=== PATIENT | female | born 1975 | race Caucasian/White ===

== ENCOUNTER → 2018-04-17 | Outpatient (CLI) | payer OTHER | LOC: FIMAGING 11:34 | PROVIDERS: ATTEND Hospitalist | DX: O09.521 Supervision of elderly multigravida, first trimester (principal); Z3A.12 12 weeks gestation of pregnancy ==

== ENCOUNTER → 2018-05-16 | Outpatient (CLI) | payer OTHER | LOC: FIMAGING 08:54 | PROVIDERS: ATTEND Hospitalist | DX: O92.29 Other disorders of breast associated with pregnancy and the puerperium (principal) ==

== ENCOUNTER → 2018-06-08 | Outpatient (CLI) | payer OTHER | LOC: FIMAGING 12:50 | PROVIDERS: ATTEND Hospitalist | DX: O09.522 Supervision of elderly multigravida, second trimester (principal); Z3A.19 19 weeks gestation of pregnancy ==

== ENCOUNTER → 2018-08-28 | Outpatient (CLI) | payer OTHER | LOC: FIMAGING 12:10 | PROVIDERS: ATTEND Obstetrics & Gynecology | DX: O09.523 Supervision of elderly multigravida, third trimester (principal); R11.0 Nausea; Z3A.31 31 weeks gestation of pregnancy ==

== ENCOUNTER 2018-10-27 06:00 | Inpatient (IN) | payer OTHER ==
[2018-10-27] MEDS ORDERED: AMMONIA AROMATIC 1 EACH AMP IH PRN (07:52)
[2018-10-27] MEDS ORDERED: OXYTOCIN/RINGERS LACTATE 1,000 ML IV PRN (07:52)
[2018-10-27] MEDS ORDERED: OLIVE OIL 118 ML BTL MISC PRN (07:52)
[2018-10-27] MEDS ORDERED: LR 1,000 ML IV PRN (07:52)
[2018-10-27] MEDS ORDERED: MISOPROSTOL 200 MCG TAB PO PRN (07:52)
[2018-10-27] MEDS ORDERED: LIDOCAINE 1% 300 MG/30 ML SDV SC PRN (07:52)
[2018-10-27] MEDS ORDERED: IBUPROFEN 600 MG TAB PO PRN (07:52)
[2018-10-27] MEDS ORDERED: TERBUTALINE SULFATE 1 MG/ML VIAL IV PRN (07:52)
[2018-10-27] MEDS ORDERED: EPSOM SALT 454 GM TP PRN (07:52)
[2018-10-27 08:18] LABS: PLATELET COUNT 178 10^3/uL (150-400)
[2018-10-27] MEDS ORDERED: LR 500 ML IV PRN ×2 (08:45→09:06)
[2018-10-27] MEDS ORDERED: OXYTOCIN/RINGERS LACTATE 500 ML IV SCH ×2 (09:00→09:30)
[2018-10-27] MEDS ORDERED: OXYTOCIN/LR *STANDARD DOSE PROTOCOL IV SCH (09:30)
[2018-10-27] MEDS ORDERED: TERBUTALINE SULFATE 1 MG/ML VIAL ONE (09:41)
[2018-10-27] MEDS ORDERED: OLIVE OIL 118 ML BTL MISC ONE (09:41)
[2018-10-27] MEDS ORDERED: LIDOCAINE 1% 300 MG/30 ML SDV ONE (09:41)
[2018-10-27] MEDS ORDERED: AMMONIA AROMATIC 1 EACH AMP IH ONE (09:41)
[2018-10-27] MEDS ORDERED: MISOPROSTOL 200 MCG TAB ONE (09:42)
[2018-10-27] MEDS ORDERED: OXYTOCIN 10 UNIT/ML VIAL ONE (09:42)
--- NOTE | 2018-10-27 12:18 | PDGENHP ---
History and Physical - Chief Complaint Elective IOL - History of Present Illness Chloe is a 43 yo today at 40w0d by SAMI of 10/27/18 - here for IOL due to AMA. H/o 3 SVDs in the past as below. This complicated by AMA (43), APA (>50). Rh neg. OB History: 2006 - SAB, D&C 2007 - , Loraine, 1hdi2kg, 40wks, 24hrs labor, epidural 2011 - , Christa, [id number], 41wks, 13hrs labor, epidural 2013 - SAB, D&C 2015 - , Silvino, [id number], 40w2d, 5hrs labor, IOL post-dates Labs: A NEGATIVE Antibody negative RPR NR Hep B Neg HIV neg Trio neg 2014 Standard panel neg PIH labs baseline WNL Apr 2018 GCC neg AFP normal Innatal normal Glucola 121 GBS NEGATIVE VZV IMMUNE Parvo NONimmune History Information - Allergies/Home Medication List Allergies/Adverse Reactions: No Known Allergies Allergy (Verified 05/06/14 11:19) Home Medications: Vit27&Calcium/Iron/FA [] 1 each PO DAILY 05/06/14 [Last Taken Unknown] I have personally reviewed and updated: family history, medical history, social history, surgical history Past Medical History: AMA, Rh negative - Surgical History Reports: no pertinent surgical hx - Family History Positive for: non-pertinent - Social History Smoking Status: Never smoked Review of Systems Review of Systems: ROS: 10pt was reviewed & negative except for what was stated in HPI & below Physical Exam Physical Exam: Constitutional: no apparent distress, appears nourished, not in pain Eyes: PERRL, anicteric sclera Ears, Nose, Mouth, Throat: moist mucous membranes Respiratory: no respiratory distress Gastrointestinal: soft, non-tender abdomen, other (gravid, longitudinal lie) Skin: warm, normal color, no rashes or abrasions Lab Data & Imaging Review 10/27/18 07:30 WBC 9.42 10^3/uL (3.80-9.50) 10/27/18 07:30 RBC 4.19 10^6/uL (4.18-5.33) 10/27/18 07:30 Hgb 12.8 g/dL (12.6-16.3) 10/27/18 07:30 Hct 37.8 % (38.0-47.0) L 10/27/18 07:30 MCV 90.2 fL (81.5-99.8) 10/27/18 07:30 MCH 30.5 pg (27.9-34.1) 10/27/18 07:30 MCHC 33.9 g/dL (32.4-36.7) 10/27/18 07:30 RDW 13.7 % (11.5-15.2) 10/27/18 07:30 Plt Count 178 10^3/uL (150-400) 10/27/18 07:30 MPV 10.0 fL (8.7-11.7) 10/27/18 07:30 Neut % (Auto) 77.3 % (39.3-74.2) H 10/27/18 07:30 Lymph % (Auto) 11.3 % (15.0-45.0) L 10/27/18 07:30 Sierra % (Auto) 7.7 % (4.5-13.0) 10/27/18 07:30 Eos % (Auto) 2.5 % (0.6-7.6) 10/27/18 07:30 Baso % (Auto) 0.4 % (0.3-1.7) 10/27/18 07:30 Nucleat RBC Rel Count 0.0 % (0.0-0.2) 10/27/18 07:30 Absolute Neuts (auto) 7.27 10^3/uL (1.70-6.50) H 10/27/18 07:30 Absolute Lymphs (auto) 1.06 10^3/uL (1.00-3.00) 10/27/18 07:30 Absolute Monos (auto) 0.73 10^3/uL (0.30-0.80) 10/27/18 07:30 Absolute Eos (auto) 0.24 10^3/uL (0.03-0.40) 10/27/18 07:30 Absolute Basos (auto) 0.04 10^3/uL (0.02-0.10) 10/27/18 07:30 Absolute Nucleated RBC 0.00 10^3/uL (0-0.01) 10/27/18 07:30 Immature Gran % 0.8 % (0.0-1.1) 10/27/18 07:30 Immature Gran # 0.08 10^3/uL (0.00-0.10) 10/27/18 07:30 Patient ABO/Rh A NEGATIVE 10/27/18 07:30 Antibody Screen NEGATIVE 10/27/18 07:30 Assessment & Plan Assessment: 43 yo at 40w0d today - here for IOL for AMA. Pitocin started this AM, will AROM once into regular ctx pattern. Will want epidural. No h/o dystocia or PPH - pelvic proven to 1ocy8rm. Rh neg, will need screen and RhoGam PRN. GBS NEGATIVE. Rubella and VZV immune. ONEYDA
[2018-10-27] MEDS ORDERED: fentaNYL 2MCG/ML/BUP 0.1% RTU 100 ML BAG EP ONE (16:58)
[2018-10-27] MEDS ORDERED: PHENYLEPHRINE HCL 100 MCG/ML SYR ONE (16:59)
[2018-10-27] MEDS ORDERED: BUPIVACAINE 0.25% 10 ML SDV ONE (16:59)
[2018-10-27] MEDS ORDERED: ONDANSETRON 4 MG/2 ML VIAL IVP PRN (17:31)
[2018-10-27] MEDS ORDERED: PHENYLEPHRINE HCL 100 MCG/ML SYR IVP PRN (17:31)
[2018-10-27] MEDS ORDERED: NALOXONE HCL 0.4 MG/ML INJ IVP PRN (17:31)
--- NOTE | 2018-10-27 17:33 | PREANESOB ---
Obstetric Pre-Anesthesia Info - General Info Proposed Procedure: ROSITA : 6 Para: 3 SAMI: 10/27/18 Gestational Age: 40 week(s) and 0 day(s) - Info Status: Full Term FHR Pattern: Reassuring - Labor Status Indications for Labor Analgesia: Pain Control Labor Epidural: Yes Anesthesia Allergies/Adverse Reactions: Allergy/AdvReac Type Severity Reaction Status Date / Time No Known Allergies Allergy Verified 05/06/14 11:19 Home Medications: Medication Instructions Recorded Vit27&Calcium/Iron/FA 1 each PO DAILY 05/06/14 [] Hydrocodone/APAP 5/325 [Greig 1 - 2 tab PO Q4 PRN #7 tab 12/19/15 5/325 (*)] Ibuprofen [Motrin (*)] 600 mg PO Q6 PRN #0 tab 12/19/15 Iron Polysacch/Iron Heme Polyp 28 mg PO BID #0 tab 12/19/15 [Bifera] Visit Medications: Generic Name Dose Route Start Last Admin Trade Name Freq PRN Reason Stop Dose Admin Ammonia (Aromatic Spirit) 1 each 10/27/18 07:52 Ammonia Aromatic IH 11/06/18 07:51 ONCE PRN Fainting Lactated Ringer's 1,000 mls @ 0 mls/hr 10/27/18 07:52 10/27/18 09:29 Lr IV 10/28/18 07:51 1,000 mls PRN PRN Administration SEE PROTOCOL CONDITIONS Protocol Per Protocol Oxytocin/Lactated Ringer's 1,000 mls @ 0 mls/hr 10/27/18 07:52 Pitocin 20 Units/Lr (Premix) IV PRN PRN Post bleeding As Directed Lactated Ringer's 500 mls @ 500 mls/hr 10/27/18 09:06 Lr IV 10/28/18 09:06 PRN PRN Maternal Hypotension Oxytocin/Lactated Ringer's 500 mls @ 0 mls/hr 10/27/18 09:30 10/27/18 09:28 Pitocin 30 Units/Lr (Premix) IV 04/25/19 09:29 500 mls CONT STERLING Administration Protocol Per Protocol Ibuprofen 600 mg 10/27/18 07:52 Motrin PO ONCE PRN post , pain Lidocaine HCl 300 mg 10/27/18 07:52 Lidocaine Hcl 1% SC 04/25/19 07:51 ONCE PRN episiotomy Magnesium Sulfate 454 gm 10/27/18 07:52 Epsom Salt TP 04/25/19 07:51 Q1H PRN perineal discomfort Misoprostol 800 - 1,000 mcg 10/27/18 07:52 Cytotec PO 04/25/19 07:51 ONCE PRN Vaginal Atony/Bleeding [place] Oil 118 ml 10/27/18 07:52 Sweet Oil MISC 04/25/19 07:51 ONCE PRN perineal massage Terbutaline Sulfate 0.25 mg 10/27/18 07:52 Brethine IV 04/25/19 07:51 ONCE PRN Tachysystole Discontinued Medications Generic Name Dose Route Start Last Admin Trade Name Freq PRN Reason Stop Dose Admin Ammonia (Aromatic Spirit) Confirm 10/27/18 09:41 Ammonia Aromatic Administered 10/27/18 09:42 Dose 1 each IH .STK-MED ONE Bupivacaine HCl Confirm 10/27/18 16:59 Sensorcaine 0.25% Sdv Administered 10/27/18 17:00 Dose 10 ml .ROUTE .STK-MED ONE Fentanyl/Bupivacaine HCl Confirm 10/27/18 16:58 Fentanyl/Bupivacaine/Ns 2 Mcg/Ml 0.1% (Premix Administered 10/27/18 16:59 Dose 100 ml EP .STK-MED ONE Oxytocin/Lactated Ringer's 500 mls @ 0 mls/hr 10/27/18 09:30 Pitocin 30 Units/Lr (Premix) IV 04/25/19 09:29 CONT STERLING Protocol Per Protocol Lidocaine HCl Confirm 10/27/18 09:41 Lidocaine Hcl 1% Administered 10/27/18 09:42 Dose 300 mg .ROUTE .STK-MED ONE Misoprostol Confirm 10/27/18 09:42 Cytotec Administered 10/27/18 09:43 Dose 1,000 mcg .ROUTE .STK-MED ONE [place] Oil Confirm 10/27/18 09:41 Sweet Oil Administered 10/27/18 09:42 Dose 118 ml MISC .STK-MED ONE Oxytocin Confirm 10/27/18 09:42 Pitocin Administered 10/27/18 09:43 Dose 10 unit .ROUTE .STK-MED ONE Phenylephrine HCl Confirm 10/27/18 16:59 Neosynephrine Administered 10/27/18 17:00 Dose 1,000 mcg .ROUTE .STK-MED ONE Terbutaline Sulfate Confirm 10/27/18 09:41 Brethine Administered 10/27/18 09:42 Dose 1 mg .ROUTE .STK-MED ONE - Anesthesia History Response to Local Anesthetics: Normal Anesthesia & Operative History: Prob w/Prior Anesthesia Family Anesthesia History: Negative - Social History Substance Use/Abuse: Denies - Vital Signs Height/Weight (Nursing): Height 175.26 cm Weight 87.543 kg - Focused Exam Neck exam: FROM Mallampati Score: Class 2 Mouth exam: normal dental/mouth exam Pulmonary: no respiratory distress Cardiovascular: regular rate and rhythym Labs: 10/27/18 07:30 Patient ABO/Rh A NEGATIVE 10/27/18 07:30 - Plan Anesthetic Plan: ROSITA Consent Signed and on Chart: Yes
[2018-10-27] MEDS ORDERED: fentaNYL 2MCG/ML/BUP 0.1% RTU 100 ML EP SCH (18:00)
[2018-10-27] MEDS ORDERED: LR 500 ML IV SCH (18:00)
[2018-10-27] MEDS ORDERED: HYDROCORTISONE 0.5% CREAM TP PRN (18:20)
[2018-10-27] MEDS ORDERED: SIMETHICONE 80 MG TAB CHEW PO PRN (18:20)
--- NOTE | 2018-10-27 18:20 | OBDEL ---
Info Type: Vaginal Presentation at Delivery: Vertex L&D Analgesia/Anesthesia Type: Epidural GBS+: No Intrapartum Medications: Generic Name Dose Route Start Last Admin Trade Name Freq PRN Reason Stop Dose Admin Lactated Ringer's 1,000 mls @ 0 mls/hr 10/27/18 07:52 10/27/18 09:29 Lr IV 10/28/18 07:51 1,000 mls PRN PRN Administration SEE PROTOCOL CONDITIONS Protocol Per Protocol Oxytocin/Lactated Ringer's 500 mls @ 0 mls/hr 10/27/18 09:30 10/27/18 09:28 Pitocin 30 Units/Lr (Premix) IV 04/25/19 09:29 500 mls CONT STERLING Administration Protocol Per Protocol Indications for Delivery: Elective (AMA 40wks) Vaginal Delivery - Delivery Provider Delivery Physician/CNM: Anam Waggoner - Labor and Delivery Onset of Contractions Date: 10/27/18 Onset of Contractions Time: 09:00 Onset of Contractions Type: Augmented Rupture of Membranes Date: 10/27/18 Rupture of Membranes Time: 12:00 Rupture of Membranes Type: Artificial Amniotic Fluid Color: Clear Dilation Complete Date: 10/27/18 Dilation Complete Time: 17:47 Placenta Delivery Date: 10/27/18 Placenta Delivery Time: 18:06 Total Hours of Labor: 9 Non-surgical Procedures: Amniotomy Laceration: 2nd Degree Repair: 3-0 Vaginal Sponge Count Correct: Yes Vaginal Needle Count Correct: Yes Vaginal Sweep Performed: Yes EBL: 250 Delivery Events: Nuchal Cord (x1) Delivery Comment: Pitocin started in the AM, AROM with clear fluid after she was in regular ctx pattern. Requested epidural and immediately after placement she felt pressure and was found to be complete and +2. She pushed for approximately 5 minutes and delivered vigorous baby girl over 2nd degree laceration, single nuchal cord easily reduced at perineum. Baby up to mom's chest. Delayed cord clamping for 1 minute. Placenta delivered spontaneously. 2nd degree lac repaired with 3-0 vicryl standard fashion. Mom and baby doing well in room. - Medications Labor Augmentation/Induction Methods Used: Pitocin Labor Augmentation/Induction Indication: Medical (AMA) Data SAMI: 10/27/18 Gestational Age: 40 week(s) and 0 day(s) [place] Delivery Date: 10/27/18 Delivery Time: 18:02 Sex of : Female Score (1 Min): 8 Score (5 Min): 8 Shoulder Dystocia Time Head Delivered: 18:02 Time Body Delivered: 18:02 Dystocia Comment: None ICD10 Worksheet Patient Problems: Problems Problem Status Onset Advanced maternal age in multigravida Acute Nuchal cord affecting delivery Acute (spontaneous vaginal delivery) Acute - ICD10 Problem Qualifiers (1) Advanced maternal age in multigravida Qualifiers: Trimester: third trimester Qualified Code(s): O09.523 - Supervision of elderly multigravida, third trimester (2) Nuchal cord affecting delivery
[2018-10-27] MEDS: ACETAMINOPHEN 325 MG TAB PO PRN (21:34)
[2018-10-27] MEDS: DOCUSATE SODIUM 100 MG CAP PO PRN (21:35)
[2018-10-28] MEDS: oxyCODONE IR 5 MG TAB PO PRN ×6 (02:43→23:55)
[2018-10-28] MEDS: IBUPROFEN 600 MG TAB PO PRN ×4 (03:31→21:10)
[2018-10-28] MEDS: ACETAMINOPHEN 325 MG TAB PO PRN ×4 (03:31→21:10)
--- NOTE | 2018-10-28 08:11 | POSTANESTH ---
Post Anesthetic Evaluation Cardiovascular Status: Normal, Stable Respiratory Status: Normal, Stable Level of Consciousness/Mental Status: Can Participate in Eval Pain Control: Adequate, Prn Tx Ordered Nausea/Vomiting Control: Adequate, Prn Tx Ordered Complications Possibly Related to Anesthesia: None Noted Notes: Pt. reports she had quite a precipitous delivery and, as a result, doesn't feel as if she received the full benefit of the ROSITA, except during pushing. No complaints elicited in detailed questioning, ambulating and urinating without difficulty. Minimal point tenderness at ROSITA placement site.
[2018-10-28] MEDS: DOCUSATE SODIUM 100 MG CAP PO PRN ×2 (09:24→21:10)
--- NOTE | 2018-10-28 11:38 | OBPP ---
Progress Note Assessment/Plan: Assessment: ppd# 1 s//p breast feeding RH - baby is rh+ - rhogam ordered routine post care Plan: 10/28/18 11:35 Subjective/ Course: 10/28/18 11:37 patient is doing well. pain is controlled. having significant cramping with breast feeding. denies headache and changes in vision. ambulating. normal lochia. Objective: 10/28/18 00:46 Patient ABO/Rh A NEGATIVE 10/28/18 00:46 Temp Pulse Resp BP Pulse Ox 36.7 C 78 18 117/68 96 10/27/18 23:15 10/27/18 23:15 10/27/18 23:15 10/27/18 23:15 10/27/18 23:15 Physical Exam - Physical Exam Neck: non-tender, full range of motion Respiratory: chest non-tender, lungs clear, normal breath sounds Cardiac/Chest: normal peripheral pulses, regular rate, rhythm Abdomen: normal bowel sounds, non-tender, other (fundus firm and non tender) Extremities: normal range of motion, non-tender, normal inspection, normal capillary refill Skin: normal color, warm/dry Neuro/Psych: no motor/sensory deficits, alert, normal mood/affect, oriented x 3
[2018-10-29] MEDS: ACETAMINOPHEN 325 MG TAB PO PRN ×2 (03:49→10:02)
[2018-10-29] MEDS: IBUPROFEN 600 MG TAB PO PRN ×2 (03:49→10:02)
[2018-10-29] MEDS: oxyCODONE IR 5 MG TAB PO PRN ×3 (03:49→11:55)
[2018-10-29] MEDS: DOCUSATE SODIUM 100 MG CAP PO PRN (07:54)
--- NOTE | 2018-10-29 09:51 | OBPP ---
Progress Note Assessment/Plan: Assessment: Plan: Subjective/ Course: 10/28/18 11:37 patient is doing well. pain is controlled. having significant cramping with breast feeding. denies headache and changes in vision. ambulating. normal lochia. Objective: 10/28/18 00:46 Patient ABO/Rh A NEGATIVE 10/28/18 00:46 Temp Pulse Resp BP Pulse Ox 36.3 C 78 16 93/47 L 97 10/28/18 21:00 10/28/18 21:00 10/28/18 21:00 10/28/18 21:00 10/28/18 21:00
--- NOTE | 2018-10-29 09:51 | OBGCSDC ---
General Delivery Information - General Info : 6 Para: 4 Abortions: 2 Type: Vaginal L&D Analgesia/Anesthesia Type: Epidural Admission Date: 10/27/18 Labs: Patient ABO/Rh A NEGATIVE 10/28/18 00:46 Hct 36.3 % (38.0-47.0) L 10/28/18 00:46 - Hospital Course : 10/28/18 11:37 patient is doing well. pain is controlled. having significant cramping with breast feeding. denies headache and changes in vision. ambulating. normal lochia. Vaginal - Delivery Provider Delivery Physician/CNM: Anam Waggoner - Diagnosis Labor: Augmented Rupture of Membranes Type: Artificial Amniotic Fluid Color: Clear Laceration: 2nd Degree Repair: 3-0 Delivery Events: Nuchal Cord (x1) - Procedures Non-surgical Procedures: Amniotomy - Delivery Non-surgical Procedures: Amniotomy EBL: 250 Man[place] Data SAMI: 10/27/18 Gestational Age: 40 week(s) and 2 day(s) [place] Delivery Date: 10/27/18 Delivery Time: 18:02 Sex of Infant: Female Manly Weight (gm): 3570 g Score (1 Min): 8 Score (5 Min): 8
[2018-10-29 11:53] VITALS: BP 99/56
== END 2018-10-29 12:37 | disposition home or self-care (01) | DRG 807 ==
LOC: FLD 06:15 → FOB 21:58
PROVIDERS: ADMIT Obstetrics & Gynecology; ATTEND Obstetrics & Gynecology
DX: O70.1 Second degree perineal laceration during delivery (principal); O69.81X0 Labor and delivery complicated by cord around neck, without compression, not applicable or unspecified; O26.893 Other specified pregnancy related conditions, third trimester; Z67.91 Unspecified blood type, Rh negative; Z3A.40 40 weeks gestation of pregnancy; Z37.0 Single live birth
CPT/HCPCS: J2370; J2590; J3105